=== PATIENT | male | born 1940 | race Caucasian/White ===

== ENCOUNTER 2018-10-22 14:17 | Observation (INO) | payer OTHER ==
--- NOTE | 2018-10-22 14:33 | EDPHY ---
H & P Time Seen by Provider: 10/22/18 14:33 HPI/ROS: CHIEF COMPLAINT: Altered mental status for 1 week HISTORY OF PRESENT ILLNESS: Daughter states the patient has had increasing altered mental status for the past week. She describes him being more long winded explanations, recalling conversations that did not actually happen, as well as being weaker and having more difficulty standing. The patient states that his dizziness began last May, then got better. He was initially placed on Flomax in July after having some hematuria and then the dizziness returned, his oceanographic meteorologist thought it might be related to the Flomax. When asked him to define what he means by dizziness he states that I "suddenly do not know where I am." It is clear based on his answer that he does not mean he had syncope or presyncope, lightheadedness, vertigo, or visual symptoms. He apparently has been having trouble walking over the past week. He says he gets a headache and leg weakness when he stands up. A sounds like by the family 's report that he has been having trouble with his balance and or his strength. He has had intermittent frontal headache for the past week and is on Eliquis. Altered mental status is not seem to be better or worse with anything in particular. Not associated with weakness or numbness in any focal pattern. REVIEW OF SYSTEMS: Eye: no change in vision ENT: no sore throat Cardiac: no chest pain or syncope Pulmonary: no cough or SOB Abdomen: no vomiting, diarrhea, abdominal pain Musculoskeletal: no back pain or neck pain Skin: no rash Neuro: HPI, does have peripheral neuropathy not apparently diabetic. Constitutional: no fever : no urinary symptoms currently A comprehensive 10 point review of systems is otherwise negative aside from elements mentioned in the history of present illness. PAST MEDICAL HISTORY: Atrial fibrillation, ablation. Aortic valve replacement. Pacemaker. Social history: Here with daughter who is an cubing machine tender General Appearance: Alert and conversant, cooperative. Eyes: No scleral icterus. Extraocular motion intact. ENT, Mouth: Normal mucous membranes. Respiratory: Normal respiratory effort, breath sounds equal, lungs are clear to auscultation. Cardiovascular: Regular rate and rhythm. Gastrointestinal: Abdomen is soft and non tender. Neurological: Alert, face symmetric, follows commands and describes symptoms. He has some decreased sensation in both legs which is chronic but appears to have normal strength and each leg, can lift each foot off the bed for a count of 5. No pronator drift and good strategic partnership representative strength. Speech is fluent. Skin: Warm and dry, no rashes. Musculoskeletal: No peripheral edema. Psychiatric: Not agitated. Emergency Department course/MDM: Noted to be tachycardic heart rate of 114 systolic blood pressure 184, afebrile. CT head ordered to evaluate for subdural or intracranial hemorrhage with altered mental status on Eliquis. CBC chemistry and urinalysis. 1525: discussed with Elisabeth, admitted for altered mental status, abnormal vital signs, dizzy and difficulty walking. Has an MRI compatible pacemaker. CT angio in the ED. Discussed admission for further evaluation with family and patient, they are in agreement. Angiography negative per Dr. Salguero. Smoking Status: Never smoked Constitutional: Initial Vital Signs Temperature (C) 36.6 C 10/22/18 14:22 Heart Rate 114 H 10/22/18 14:22 Respiratory Rate 20 10/22/18 14:22 Blood Pressure 184/111 H 10/22/18 14:22 O2 Sat (%) 96 10/22/18 14:22 O2 Delivery Mode Room Air Allergies/Adverse Reactions: No Known Allergies Allergy (Unverified 10/22/18 14:22) Home Medications: Medication Instructions Recorded Apixaban [Eliquis] 5 mg PO BID 10/22/18 Metoprolol Tartrate [Lopressor 25 25 mg PO BID 10/22/18 mg (*)] Medical Decision Making - Diagnostics EKG Interpretation: 12-lead EKG interpreted by me; official reading is in computer system. My interpretation is sinus rhythm rate 96 with right bundle branch block and left posterior fascicular block is Imaging Results: Imaging Impressions Head CT 10/22/18 14:58 Impression: Mild senescent features, with no acute abnormality identified on this unenhanced CT evaluation. If there is further clinical concern regarding the patient's symptoms, MR imaging is suggested, if not otherwise contraindicated. Findings were discussed with RONALDO LEAL MD at 15:18, on 10/22/2018. Imaging: Discussed imaging studies w/ house calls nurse practitioner Radiologist - Data Points Laboratory Results: Laboratory Results 10/22/18 14:53 10/22/18 14:53 10/22/18 10/22/18 10/22/18 15:29 14:59 14:53 WBC RBC Hgb Hct MCV MCH MCHC RDW Plt Count MPV Neut % (Auto) Lymph % (Auto) [place] % (Auto) Eos % (Auto) Baso % (Auto) Nucleat RBC Rel Count Absolute Neuts (auto) Absolute Lymphs (auto) Absolute Monos (auto) Absolute Eos (auto) Absolute Basos (auto) Absolute Nucleated RBC Immature Gran % Immature Gran # Sodium 133 mEq/L L mEq/L (135-145) Potassium 4.1 mEq/L mEq/L (3.5-5.2) Chloride 97 mEq/L mEq/L (97-110) Carbon Dioxide 25 mEq/l mEq/l (22-31) Anion Gap 11 mEq/L mEq/L (6-14) BUN 14 mg/dL mg/dL (7-23) Creatinine 0.8 mg/dL mg/dL (0.7-1.3) Estimated GFR > 60 Glucose 131 mg/dL H mg/dL (70-100) Calcium 10.1 mg/dL mg/dL (8.5-10.4) POC Troponin I 0.00 ng/mL ng/mL (0.00-0.08) Urine Color YELLOW Urine Appearance CLEAR Urine pH 6.0 (5.0-7.5) Ur Specific [place] 1.017 (1.002-1.030) Urine Protein NEGATIVE (NEGATIVE) Urine Ketones TRACE H (NEGATIVE) Urine Blood NEGATIVE (NEGATIVE) Urine Nitrate NEGATIVE (NEGATIVE) Urine Bilirubin NEGATIVE (NEGATIVE) Urine Urobilinogen 2.0 EU H EU (0.2-1.0) Ur Leukocyte Esterase NEGATIVE (NEGATIVE) Urine Glucose NEGATIVE (NEGATIVE) 10/22/18 14:53 WBC 6.22 10^3/uL 10^3/uL (3.80-9.50) RBC 5.81 10^6/uL 10^6/uL (4.40-6.38) Hgb 17.4 g/dL g/dL (13.7-17.5) Hct 48.0 % % (40.0-51.0) MCV 82.6 fL fL (81.5-99.8) MCH 29.9 pg pg (27.9-34.1) MCHC 36.3 g/dL g/dL (32.4-36.7) RDW 13.7 % % (11.5-15.2) Plt Count 108 10^3/uL L 10^3/uL (150-400) MPV 10.8 fL fL (8.7-11.7) Neut % (Auto) 64.0 % % (39.3-74.2) Lymph % (Auto) 24.6 % % (15.0-45.0) [place] % (Auto) 8.0 % % (4.5-13.0) Eos % (Auto) 2.1 % % (0.6-7.6) Baso % (Auto) 0.8 % % (0.3-1.7) Nucleat RBC Rel Count 0.0 % % (0.0-0.2) Absolute Neuts (auto) 3.98 10^3/uL 10^3/uL (1.70-6.50) Absolute Lymphs (auto) 1.53 10^3/uL 10^3/uL (1.00-3.00) Absolute Monos (auto) 0.50 10^3/uL 10^3/uL (0.30-0.80) Absolute Eos (auto) 0.13 10^3/uL 10^3/uL (0.03-0.40) Absolute Basos (auto) 0.05 10^3/uL 10^3/uL (0.02-0.10) Absolute Nucleated RBC 0.00 10^3/uL 10^3/uL (0-0.01) Immature Gran % 0.5 % % (0.0-1.1) Immature Gran # 0.03 10^3/uL 10^3/uL (0.00-0.10) Sodium Potassium Chloride Carbon Dioxide Anion Gap BUN Creatinine Estimated GFR Glucose Calcium POC Troponin I Urine Color Urine Appearance Urine pH Ur Specific [place] Urine Protein Urine Ketones Urine Blood Urine Nitrate Urine Bilirubin Urine Urobilinogen Ur Leukocyte Esterase Urine Glucose Point of Care Test Results: Chemistry 10/22/18 14:59 POC Troponin I 0.00 ng/mL ng/mL (0.00-0.08) Departure - Departure Disposition: [facility] Acute Clinical Impression: Confusion, Difficulty walking Condition: Good
--- NOTE | 2018-10-22 14:48 | CPEKG ---
Test Reason : OPEN Blood Pressure : / mmHG Vent. Rate : 096 BPM Atrial Rate : 096 BPM P-R Int : 217 ms QRS Dur : 141 ms QT Int : 416 ms P-R-T Axes : 049 094 -25 degrees QTc Int : 526 ms Sinus rhythm Prolonged MA interval RBBB and LPFB Confirmed by Eunice Brown ([id number]) on 10/22/2018 2:47:31 PM Referred By: Shukri Tran Confirmed By:Eunice Brown
[2018-10-22 15:17] LABS: PLATELET COUNT 108 10^3/uL (150-400)
[2018-10-22] MEDS ORDERED: IOPAMIDOL (ISOVUE 370) 100 ML BTL IV ONE (15:47)
[2018-10-22] MEDS ORDERED: ONDANSETRON 4 MG/2 ML VIAL IVP PRN (17:19)
[2018-10-22] MEDS ORDERED: oxyCODONE IR 5 MG TAB PO PRN (17:19)
[2018-10-22] MEDS ORDERED: PROMETHAZINE HCL 25 MG/ML INJ IVP PRN (17:19)
[2018-10-22] MEDS ORDERED: HYDROCODONE/APAP 5/325 TAB PO PRN (17:19)
[2018-10-22] MEDS ORDERED: ONDANSETRON DISINTEGRATING 4 MG TAB PO PRN (17:19)
[2018-10-22] MEDS ORDERED: ACETAMINOPHEN 325 MG TAB PO PRN (17:19)
[2018-10-22] MEDS ORDERED: HYDROmorphONE/DILAUDID 1 MG/ML INJ IVP PRN (17:19)
[2018-10-22] MEDS ORDERED: hydrALAZINE 20 MG/ML VIAL IVP PRN (17:19)
[2018-10-22] MEDS: METOPROLOL TARTRATE 25 MG TAB PO SCH ×2 (18:06→18:55)
--- NOTE | 2018-10-22 19:50 | PDGENHP ---
History and Physical - Chief Complaint episodes of confusion, decline in MS - History of Present Illness Patient is a 78 yo M with PMH that includes CAD, a fib, VHD and presenting with c/o episodes of dizziness that he describes as 'not knowing where he is or what is going on' as well as gait instability intermittently and concerns by his family that he has been having declining cognition over the last month and severely over the past 2 weeks. Patient is a bit of a poor historian and describes a history that began with his a fib and prior ablations and then having hematuria while on AC. Sometime after that he began to complain of episodes of dizziness and headache that was being managed largely by his finished carpet inspector, who per patients daughter (who is a fuel tank sealer and tester here at [facility]) is essentially his PCP. He was treated for the dizziness with discontinuation of flomax initially and then with compression stockings. He notes that despite those interventions these episodes continued and seemed to worsen. When asked to describe these episodes further he notes that he is not having vertigo like symptoms nor near syncope, but dizziness that is described as not knowing where he is or what is going on and that gets better if he lies down and waits a while. His daughters present at bedside note that they are very concerned by the changes in his cognition. 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 She notes he has had issues with remembering timelines and dates, and that his gait has been more off balance than usual and that he has been forgetting to take his medications at times as well which is not like him. She feels the change has occurred over the last month or more, but more acutely over the last 2 weeks. She has discussed this with his finished carpet inspector who has recommended evaluation by neurology, she states that it has not been felt that this is likely due to dementia. History Information - Allergies/Home Medication List Allergies/Adverse Reactions: No Known Allergies Allergy (Unverified 10/22/18 14:22) Home Medications: Apixaban [Eliquis] 5 mg PO BID 10/22/18 [Last Taken 10/21/18 08:00] Metoprolol Tartrate [Lopressor 25 mg (*)] 25 mg PO BID 10/22/18 [Last Taken 05/01 08:00] I have personally reviewed and updated: family history, medical history, social history, surgical history - Past Medical History atrial fibrillation, coronary artery disease, hypertension, hyperlipidemia Additional medical history: VHD--prior severe . peripheral neuropathy - Surgical History Reports: coronary bypass surgery, cholecystectomy, pacemaker/AICD, coronary stent - Family History Positive for: non-pertinent - Social History Smoking Status: Never smoked Alcohol Use: Rarely Drug Use: None Additional social history: lives independently, is Review of Systems Review of Systems: ROS: 10pt was reviewed & negative except for what was stated in HPI & below Physical Exam Physical Exam: Temp Pulse Resp BP Pulse Ox 36.8 C 85 13 170/99 H 95 10/22/18 17:48 10/22/18 17:48 10/22/18 17:48 10/22/18 17:48 10/22/18 17:48 Constitutional: no apparent distress, appears nourished Eyes: PERRL, anicteric sclera Ears, Nose, Mouth, Throat: moist mucous membranes Cardiovascular: regular rate and rhythym, systolic murmur, No edema Respiratory: no respiratory distress, no rales or rhonchi Gastrointestinal: normoactive bowel sounds, soft, non-tender abdomen Genitourinary: no bladder tenderness Skin: warm, normal color Musculoskeletal: full muscle strength, No asymmetric calves Neurologic: AAOx3 Psychiatric: interacting appropriately, not anxious, not encephalopathic Lab Data & Imaging Review 10/22/18 14:53 10/22/18 14:53 WBC 6.22 10^3/uL (3.80-9.50) 10/22/18 14:53 RBC 5.81 10^6/uL (4.40-6.38) 10/22/18 14:53 Hgb 17.4 g/dL (13.7-17.5) 10/22/18 14:53 Hct 48.0 % (40.0-51.0) 10/22/18 14:53 MCV 82.6 fL (81.5-99.8) 10/22/18 14:53 MCH 29.9 pg (27.9-34.1) 10/22/18 14:53 MCHC 36.3 g/dL (32.4-36.7) 10/22/18 14:53 RDW 13.7 % (11.5-15.2) 10/22/18 14:53 Plt Count 108 10^3/uL (150-400) L 10/22/18 14:53 MPV 10.8 fL (8.7-11.7) 10/22/18 14:53 Neut % (Auto) 64.0 % (39.3-74.2) 10/22/18 14:53 Lymph % (Auto) 24.6 % (15.0-45.0) 10/22/18 14:53 [place] % (Auto) 8.0 % (4.5-13.0) 10/22/18 14:53 Eos % (Auto) 2.1 % (0.6-7.6) 10/22/18 14:53 Baso % (Auto) 0.8 % (0.3-1.7) 10/22/18 14:53 Nucleat RBC Rel Count 0.0 % (0.0-0.2) 10/22/18 14:53 Absolute Neuts (auto) 3.98 10^3/uL (1.70-6.50) 10/22/18 14:53 Absolute Lymphs (auto) 1.53 10^3/uL (1.00-3.00) 10/22/18 14:53 Absolute Monos (auto) 0.50 10^3/uL (0.30-0.80) 10/22/18 14:53 Absolute Eos (auto) 0.13 10^3/uL (0.03-0.40) 10/22/18 14:53 Absolute Basos (auto) 0.05 10^3/uL (0.02-0.10) 10/22/18 14:53 Absolute Nucleated RBC 0.00 10^3/uL (0-0.01) 10/22/18 14:53 Immature Gran % 0.5 % (0.0-1.1) 10/22/18 14:53 Immature Gran # 0.03 10^3/uL (0.00-0.10) 10/22/18 14:53 Sodium 133 mEq/L (135-145) L 10/22/18 14:53 Potassium 4.1 mEq/L (3.5-5.2) 10/22/18 14:53 Chloride 97 mEq/L (97-110) 10/22/18 14:53 Carbon Dioxide 25 mEq/l (22-31) 10/22/18 14:53 Anion Gap 11 mEq/L (6-14) 10/22/18 14:53 BUN 14 mg/dL (7-23) 10/22/18 14:53 Creatinine 0.8 mg/dL (0.7-1.3) 10/22/18 14:53 Estimated GFR > 60 10/22/18 14:53 Glucose 131 mg/dL (70-100) H 10/22/18 14:53 Calcium 10.1 mg/dL (8.5-10.4) 10/22/18 14:53 POC Troponin I 0.00 ng/mL (0.00-0.08) 10/22/18 14:59 Urine Color YELLOW 10/22/18 15:29 Urine Appearance CLEAR 10/22/18 15:29 Urine pH 6.0 (5.0-7.5) 10/22/18 15:29 Ur Specific [place] 1.017 (1.002-1.030) 10/22/18 15:29 Urine Protein NEGATIVE (NEGATIVE) 10/22/18 15:29 Urine Ketones TRACE (NEGATIVE) H 10/22/18 15:29 Urine Blood NEGATIVE (NEGATIVE) 10/22/18 15:29 Urine Nitrate NEGATIVE (NEGATIVE) 10/22/18 15:29 Urine Bilirubin NEGATIVE (NEGATIVE) 10/22/18 15:29 Urine Urobilinogen 2.0 EU (0.2-1.0) H 10/22/18 15:29 Ur Leukocyte Esterase NEGATIVE (NEGATIVE) 10/22/18 15:29 Urine Glucose NEGATIVE (NEGATIVE) 10/22/18 15:29 Visualized and Interpreted imaging results: Yes Interpretation: CTA head/neck: unremarkable. CT head: nothing acute Visualized and Interpreted EKG results: Yes EKG Interpretation: Positive for: normal sinsus rhythm, right bundle branch block Assessment & Plan Assessment: Confusion (Acute) Difficulty walking (Acute) 78 yo M with PMH that includes CAD, A fib and peripheral neuropathy admitted with subacute decline in cognition associated with episodes of more significant confusion that he describes as dizziness # subacute cognitive decline: by description this sounds most consistent with new onset dementia but is concerning in that the decline seems to be relatively rapid. Head ct/head and neck CTA are not concerning and brain MRI ordered and pending. Will check TSH, B12, syphilis screen and requested for neurology to consult. Will ask for RESEARCH MANAGEMENT ASSOCIATE to perform cognitive eval in morning as well as PT/OT evaluations. Some of the episodes he describes as dizziness concerning for bouts of TGA or possible seizure, will monitor # gait instability: with strength seemingly intact and patient still ambulating independently but per family not as he used to, w/u as above, pt/ot # CAD: without c/o chest pain, will monitor on tele, continue op medications # a fib: ecg here appears to be SR, will monitor on tele and obtain echo in am given recurrent sxs of 'dizziness', will have pacer interrogated and ask cardiology to evaluate in am # thrombocytopenia: has been chronically slightly low but lower than prior currently, continue to trend, unclear significance # hyponatremia: mild, unlikely to be contributing # VHD: with hx of bioprosthetic AVF for , echo in am # observation status for now Patient new to my care. Old records reviewed and summarized as above. Care plan reviewed with ER doctors and further hx obtained from patients family present at bedside
[2018-10-22] MEDS: APIXABAN 5 MG TAB PO SCH (20:53)
[2018-10-23 04:59] LABS: PLATELET COUNT 108 10^3/uL (150-400)
[2018-10-23] MEDS: METOPROLOL TARTRATE 25 MG TAB PO SCH (10:38)
[2018-10-23] MEDS: APIXABAN 5 MG TAB PO SCH (10:38)
[2018-10-23 12:11] VITALS: BP 127/86
--- NOTE | 2018-10-23 12:36 | GCON ---
[f rep st] CONSULTATION NEUROLOGY CONSULT REFERRING PHYSICIAN: Santiago Barber MD CHIEF COMPLAINT: Confusion episodes. HISTORY OF PRESENT ILLNESS: The patient is a very pleasant 78-year-old gentleman who has an extensive history of atrial fibrillation treated by Dr. John Khan of Cardiology. He has had multiple ablations and apparently is now in sinus rhythm long-term and remains on oral anticoagulation for vascular prophylaxis. His daughter who is a local food mixer assembler, let me know that in the last 18 months, he has had slow decline in short-term memory and confusional type symptoms. In the last month, these symptoms have appeared to increase in frequency and intensity an in the last week, more particularly. He saw his outpatient knife sharpener and had normal vital signs of that time. However, he was told to check his blood pressure when symptomatic, and the 2 times he did check while feeling confused, his blood pressure was in the 180s which led to his ED visit last night due to very high blood pressure. The symptoms are circular logic, repeating stories, with sometimes headache lasting 2 or 3 hours at a time. Again, his blood pressure was significantly elevated when checked 2 times during symptoms. He has had no focal or lateralized motor or sensory symptoms. No fevers. No meningismus. 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 He has seen a neuropathy expert for this without etiology found. REVIEW OF SYSTEMS: Ten-point review of systems was done only pertinent to the HPI. For past medical history, social history, family history, home medications, allergies, see Dr. Barber's H and P. PHYSICAL EXAM: VITAL SIGNS: Blood pressure is now 132/75. When he came in, it was 184/111, temperature 36.7, heart rate 60s to 70s and regular. GENERAL: He is awake, alert, no acute distress. NEUROLOGIC: He has no aphasia. He repeats, follows commands, and comprehends normally. Cranial nerve exam is normal 2 through 7. On motor exam, he has normal strength and tone throughout. Sensory exam has decreased light touch in his feet bilaterally otherwise normal. Coordination is normal in upper and lower extremities. Gait is cautious and nonspecific. May be due to his peripheral neuropathy. No parkinsonian features. IMPRESSION/PLAN: 1. Confusional episodes. 2. Hypertension. 3. Peripheral neuropathy. 4. Query underlying cognitive disorder. 5. History of atrial fibrillation on oral anticoagulation Overall, my impression is this patient may have an underlying neurocognitive disorder, such as mild cognitive impairment or Alzheimer disease in the background that has been present for at least 1 to 2 years. Then, he has had some intermittent more profound encephalopathy, may be related to his blood pressure. We discussed at length with the family and the patient today. We will check a baseline mental status exam today. He will have close outpatient followup with Cardiology for blood pressure control. I have asked him to take his blood pressure twice a day for Dr. Khan to adjust his medication appropriately. Finally, I would like him to see the [facility] for a cognitive evaluation. He is agreeable to all the above. He did have CTA of the head and neck, which showed no significant carotid obstruction or large vessel occlusion. He will continue his cardiovascular medications as prescribed. He will have his pacemaker interrogated for any dysrhythmia which could cause confusional episodes. Disposition per hospital medicine. No further recommendations. Please do not hesitate to call if there are any questions or changes in this patient's neurologic status.Seventy total minutes floor time; over 50% in direct counseling and coordination of care. /[id number]/MODL MTDD
--- NOTE | 2018-10-23 13:25 | ASMTCMCOM ---
CM Note CM Note Notes: Patient plan of care reviewed with MD. 78 year old male admitted via ED accompanied by family for concerns over cognitive decline and dizzyness. He has been seen by neurology who recommend a work up at the [facility]. He has periods of hypertension and his blood pressure will be folllowed closely. Plan: Likely to discharge to home when medically cleared with family support. Date Signed: 10/23/2018 12:57 PM Electronically Signed By:Grecia Stewart RN
--- NOTE | 2018-10-23 14:29 | ASMTLACE ---
LACE Length of stay for Answers: Less than 1 day current admission Comorbidities - select Answers: Coronary Artery Disease all that apply Previous myocardial infarction Other Notes: AFib; HTN; HLD; Periphe ral neuropathy # of Emergency department Answers: 1-2 visits in the last 6 months Score: 5 Date Signed: 10/23/2018 02:28 PM Electronically Signed By:Grecia Stewart RN
--- NOTE | 2018-10-23 14:31 | ASMTDCNOTE ---
Case Management Discharge Discharge Order Complete? Answers: Yes Patient to Obtain Answers: via Family Medications Transportation Arranged Answers: Family/Friends Discharge Comments Notes: Patient medically cleared to discharge home with family support and outpatient follow up. No acute needs at this time. Date Signed: 10/23/2018 02:30 PM Electronically Signed By:Grecia Stewart RN
--- NOTE | 2018-10-23 14:41 | GCON ---
[f rep st] CONSULTATION CARDIOLOGY CONSULT DATE OF CONSULTATION: 10/23/2018 CHIEF COMPLAINT: Lightheadedness and confusion. HISTORY OF PRESENT ILLNESS: We were asked by Dr. Dominguez to visit with the patient. The patient is a pleasant 78-year-old male with a past history of hypertension, aortic valve disease status post AVR and single-vessel CABG to the RCA in 2008. Previously he has had LAD stenting. He also has right bu ndle branch block, pacemaker, and history of atrial fibrillation status post ablation. He is maintai sofia on Eliquis and metoprolol. He was admitted to [facility] on October 22, with progressive confusion. He and his family are concerned about periods where he feels like he does not know where he is. He has episodes where he will just be sitt ing in a chair and suddenly feel that his head is very heavy and he is going to fall asleep. He has not actually had loss of consciousness. He denies angina, palpitations, dyspnea. Here in the hospital, he has had intermittent hypertension. For example, his admission blood pressur e was 184/111, but today, hospital day 2, his blood pressure has been fairly well controlled in the 1 30s. He has been seen by Dr. Yasmany Gomez of Neurology. Head and brain CT are negative for acute findings. ALLERGIES: No known drug allergies. PAST MEDICAL HISTORY: 1. Valvular heart disease, status post bioprosthetic AVR and single-vessel bypass 2008. 2. Coronary disease with history of PCI to the LAD as well as a bypass. 3. Hypertension. 4. Peripheral neuropathy without a diagnosis of diabetes. 5. Paroxysmal atrial fibrillation with history of ablation. 6. [employer] pacemaker. 7. Moderate bilateral carotid disease based on CT angiogram of the neck this admission. 8. History of cholecystectomy. OUTPATIENT MEDICATIONS: Eliquis 5 mg twice daily, metoprolol tartrate 12.5 twice daily. SOCIAL HISTORY: The patient is . He has 2 daughters who are very supportive. One of his vaughn ghters is an system development manager. 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 He does not smoke cigarettes or drink sig nificant amounts of alcohol. FAMILY HISTORY: Not applicable to the current case. PHYSICAL EXAM: VITAL SIGNS: Blood pressure currently 127/86, heart rate 89, oxygen saturation 90% o n room air. He is afebrile. GENERAL: Well-appearing, older male in no acute distress. HEENT: [facility] erae free of jaundice. Mucous membranes are moist. Normocephalic, atraumatic. CARDIOVASCULAR: JVP less than 10. Carotids equal 2+ without bruit. Regular rate and rhythm with a soft early systolic ejection murmur at the base. No diastolic murmur. No gallop. No rub. LUNGS: Clear bilaterally wi thout wheezes, rales or rhonchi. ABDOMEN: Obese, soft, nontender, nondistended, without obvious bru its, masses or hepatosplenomegaly. EXTREMITIES: Warm and well perfused without cyanosis, clubbing, or edema. EKG reviewed by me shows sinus rhythm with right bundle branch block. LABORATORY DATA: CBC is normal except for platelets of 108. Sodium 132, potassium 4.2, chloride 99, bicarb 21, BUN 18, creatinine 1.0. LFTs are normal. Troponin negative x1. TSH slightly high at 4. 8, vitamin B12 is 458, free T4 is normal, albumin 4.2, total protein 7. Urinalysis has 0 bilinogen a nd trace ketones, otherwise negative. Syphilis is nonreactive. Echo report from [facility] in July 2018, shows normal ejection fraction. Known bio prosthetic aortic valve with mean gradient 19. Mild tricuspid regurgitation with estimated PA systol ic pressure of 37. Pacer check this admission, shows normal device function with brief episodes of high atrial rates. ASSESSMENT AND PLAN: A 78-year-old male with the above outlined cardiac history. He presents with p rogressive confusion and memory loss as well as reported gait instability. Troponin has been negativ e, normal sinus rhythm on telemetry without significant arrhythmia and no ventricular arrhythmia on p acer check. Stable recent echocardiogram. It is possible that his episodic symptoms are related to intermittent hypertension as well as untreated sleep apnea on top of some underlying as yet ill-defin ed cognitive loss. 1. Confusion/presyncope, gait instability: No acute neuro process such as a stroke, although brain MRI has not yet been performed. We will defer to Neurology. The plan is also for detailed neuro cog nitive testing as an outpatient. He will follow up with Dr. Khan about revisiting treating his sle ep apnea. Blood pressure will be followed closely. 2. Aortic valve replacement: Normal on exam. Recent evaluation with echocardiogram at [facility] with mean gradient of 19. Ejection fraction has been preserved. 3. Coronary disease: Negative troponins. No chest pain. EKG is nonischemic. He is currently off statin, which I imagine may be because of past side effects. We will defer to Dr. Khan. 4. History of paroxysmal atrial fibrillation: Reported high atrial rates intermittently on pacer ch mariela. Sinus rhythm here. Continue metoprolol. 5. Hypertension: Will have outpatient followup. He is now fairly normotensive on his usual outpati ent dose of metoprolol. No additional medications have been added nor do I think they need to be at this time. 6. Moderate bilateral carotid disease based on neck CTA: Currently off statin. Could be readdresse d outpatient. Thank you for allowing us to participate in the patient's care. We will follow with you during his h ospital stay. /[id number]/MODL
--- NOTE | 2018-10-23 15:29 | PDDCSUM ---
Discharge Summary Discharge Summary: Date of Admission: 10/22/2018 Date of Discharge: 10/23/2018 Consults: Neurology, Cardiology Procedures: CT Head, CTA Head Neck Followup: Neurology, Cardiology, PCP Hospital Course Problem List: 78 yo M with PMH that includes CAD, A fib and peripheral neuropathy admitted with subacute decline in cognition associated with episodes of more significant confusion that he describes as dizziness # subacute cognitive decline: by description this sounds most consistent with new onset dementia but is concerning in that the decline seems to be relatively rapid. Head ct/head and neck CTA are not concerning. Brain MRI not able to be performed due to pacemaker. TSH/T4, B12, syphilis screen performed. Evaluated by Neurology who believes pt may have underlying neurocognitive d/o, mild cognitive impairment or Alzheimer disease, recommends followup with Neuro- behavioral Clinic at the [facility] for a cognitive evaluation. He has also had intermittent more profound encephalopathy which Neurology believes could be related to elevated BP. Recommend OP BP monitoring and f/u with PCP/ [facility] Dr. Khan for further evaluation and management. # gait instability: with strength seemingly intact and patient still ambulating independently but per family not as he used to, cleared by PT/OT # CAD: without c/o chest pain, evaluated by cardiology # a fib: ecg here appears to be SR, s/p pacer interrogation with no abnormalities found # thrombocytopenia: has been chronically slightly low but lower than prior currently, continue to trend # hyponatremia: mild, unlikely to be contributing # VHD: with hx of bioprosthetic AVF for , echo in am
== END 2018-10-23 14:39 | disposition home or self-care (01) ==
LOC: F3N 17:38
PROVIDERS: ADMIT Internal Medicine; ATTEND Internal Medicine
DX: R41.89 Other symptoms and signs involving cognitive functions and awareness (principal); R26.89 Other abnormalities of gait and mobility; I10 Essential (primary) hypertension; I25.10 Atherosclerotic heart disease of native coronary artery without angina pectoris; I48.0 Paroxysmal atrial fibrillation; D69.6 Thrombocytopenia, unspecified; E87.1 Hypo-osmolality and hyponatremia; Z95.2 Presence of prosthetic heart valve; Z95.0 Presence of cardiac pacemaker; Z95.1 Presence of aortocoronary bypass graft; Z79.01 Long term (current) use of anticoagulants
CPT/HCPCS: 70450; 70496; 70498; 92523; 93005; 97161; 97165; 99285; G0378; Q9967; 82607-90; 84484-ER

== ENCOUNTER → 2018-11-14 | Outpatient (CLI) | payer OTHER | LOC: FCPNEURO 20:00 ==